=== PATIENT | male | born 1990 | race Caucasian/White ===

== ENCOUNTER 2024-08-21 17:38 | Emergency (ER) | payer BC ==
[~2024-08-21] VITALS: Ht 167.6 cm; Wt 90.0 kg
[2024-08-21] MEDS ORDERED: BUPROPION XL150 MG PO (17:51)
[2024-08-21] MEDS ORDERED: LISINOPRIL20 MG PO (17:51)
[2024-08-21] MEDS ORDERED: OMEPRAZOLE20 MG PO (17:51)
[2024-08-21] MEDS ORDERED: OZEMPIC2 MG/0.75 SUB-Q (17:51)
[2024-08-21] MEDS ORDERED: ATORVASTATIN CA20 MG PO (17:51)
[2024-08-21] MEDS ORDERED: ondansetron HCL 4 MG/2 ML VIAL IV ONE ×2 (18:00→18:15)
[2024-08-21 18:10] LABS: BASOPHILS 0.5 % (0.2-1.2); EOSINOPHILS 2.3 % (0.8-7.0); HEMATOCRIT 49.9 % (40.1-51.0); HEMOGLOBIN 17.6 g/dL (13.7-17.5); LYMPHOCYTES 22.9 % (21.8-53.1); MCH 28.8 PG (25.7-32.2); MCHC 35.3 g/dL (32.3-36.5); MCV 81.7 fL (79.0-92.2); MONOCYTES 8.6 % (5.3-12.2); NEUTROPHILS 65.3 % (34.0-67.9); PLATELET COUNT 243 K/uL (163-337); RBC 6.11 M/uL (4.63-6.08)
[2024-08-21] MEDS ORDERED: SODIUM CHLORIDE 0.9% 1,000 ML IV ONE (18:15)
[2024-08-21 18:27] LABS: BILIRUBIN, URINE NEGATIVE (negative); BLOOD/HGB, URINE TRACE-L (Negative); KETONE, URINE NEGATIVE (Negative); LEUK ESTERASE, URINE NEGATIVE (negative); NITRITE, URINE NEGATIVE (negative)
[2024-08-21 18:29] LABS: ALBUMIN 4.5 g/dL (3.4-5.0); ALBUMIN/GLOBULIN RATIO 1.15 (1.1-2.4); ANION GAP 16.8 (7-21); BILIRUBIN, TOTAL 0.6 mg/dL (0.2-1.0); BUN/CREATININE RATIO 22.61 (6.0-28.6); CALCIUM 9.9 mg/dL (8.5-10.1); CREATININE, SERUM 0.84 mg/dL (0.70-1.30); MAGNESIUM 2.1 mg/dL (1.8-2.4); POTASSIUM 3.8 mmol/L (3.5-5.1); PROTEIN, TOTAL 8.4 g/dL (6.4-8.2)
[2024-08-21] MEDS ORDERED: REGLAN10 MG PO (18:30)
[2024-08-21 18:48] LABS: BACTERIA, URINE NONE SEEN /hpf (negative); CASTS, URINE NONE SEEN \\lpf; COLLECTION TYPE, URINE CLEAN CATCH; CRYSTALS, URINE NONE SEEN (0-1+); EPITHELIAL CELLS, URINE 0 /lpf (0-1+); RED BLOOD CELLS, URINE 0-1 /hpf (0-5); REFLEX CULTURE, URINE No (No); WHITE BLOOD CELLS, URINE 0-1 /HPF (0-5)
[2024-08-21 19:18] VITALS: BP 136/91
== END 2024-08-21 19:18 | disposition home or self-care (01) ==
LOC: ED 17:38
PROVIDERS: Emergency Medicine
DX: R11.10 Vomiting, unspecified (principal); I10 Essential (primary) hypertension; E78.00 Pure hypercholesterolemia, unspecified; E11.9 Type 2 diabetes mellitus without complications; Z79.899 Other long term (current) drug therapy
CPT/HCPCS: 36415; 80053; 81001; 83735; 85025; 96374; 99284-25; J2405; J7030